=== PATIENT | male | born 1950 | race Caucasian/White ===

== ENCOUNTER 2016-08-21 10:35 | Observation (INO) | payer SELFPAY ==
[2016-08-21 12:45] LABS: % IMMATURE GRANULYOCYTES 0.3 % (0.0-1.1); ABSOLUTE IMMATURE GRANULOCYTES 0.01 10^3/uL (0.00-0.10); ADD DIFF? NO; ADD MORPH? NO; ADD SCAN? NO; ATYPICAL LYMPHOCYTE FLAG 50 (0-99); FRAGMENT RBC FLAG 0 (0-99); HEMATOCRIT 41.1 % (40.0-51.0); HEMOGLOBIN 13.9 g/dL (13.7-17.5); LEFT SHIFT FLG 0 (0-99); LIPEMIA HEMOLYSIS FLAG 90 (0-99); MEAN CELL HEMOGLOBIN 30.3 pg (27.9-34.1); MEAN CELL HEMOGLOBIN CONCENTR. 33.8 g/dL (32.4-36.7); MEAN CELL VOLUME 89.5 fL (81.5-99.8); MEAN PLATELET VOLUME 9.9 fL (8.7-11.7); PLATELET CLUMPS FLAG 10 (0-99); PLATELET COUNT 163 10^3/uL (150-400); RED BLOOD CELL COUNT 4.59 10^6/uL (4.40-6.38); RED CELL DISTRIBUTION WIDTH 13.2 % (11.5-15.2)
[2016-08-21 12:58] LABS: ANION GAP 10 mEq/L (8-16); CALCIUM 8.9 mg/dL (8.5-10.4); CARBON DIOXIDE 24 mEq/l (22-31); CHLORIDE 101 mEq/L (97-110); CREATININE 1.1 mg/dL (0.7-1.3); GLOMERULAR FILTRATION RATE > 60; GLUCOSE 89 mg/dL (70-100); POTASSIUM 4.1 mEq/L (3.5-5.2); SODIUM 135 mEq/L (134-144)
[2016-08-21] MEDS ORDERED: IPRATROPIUM/ALBUTEROL 3 ML DEYVIAL ONE (13:02)
[2016-08-21] MEDS ORDERED: IPRATROPIUM/ALBUTEROL 3 ML DEYVIAL IH ONE (13:12)
--- NOTE | 2016-08-21 13:26 | EDPHY ---
H & P Smoking Status: Current every day smoker Time Seen by Provider: 08/21/16 11:14 HPI/ROS: CHIEF COMPLAINT: Cough, shortness of breath HISTORY OF PRESENT ILLNESS: 65-year-old male presents to the emergency department with ongoing cough and feeling short of breath over last for 5 days. He has felt feverish and chilled. He is homeless. He does not receive flu shots. He is a chronic smoker. He has had rhinorrhea and nasal congestion. Denies pain in his chest or his abdomen. No nausea or vomiting. No diarrhea. REVIEW OF SYSTEMS: Constitutional: No fever, no chills. Eyes: No double or blurry vision. ENT: No sore throat. Respiratory: Cough, shortness of breath as above Cardiac: No chest pain. Gastrointestinal: No abdominal pain, vomiting or diarrhea. Genitourinary: No dysuria. Musculoskeletal: No neck or back pain. Skin: No rashes. Neurological: No headache. (Verónica Benitez) Past Medical/Surgical History: Chronic smoker (Verónica Benitez) Social History: Homeless (Verónica Benitez) Physical Exam: General Appearance: Alert, no distress. Temperature 37.5, 95% on 2 L of nasal cannula oxygen. 156/87 Eyes: Pupils equal and round. Extraocular motions are all intact. ENT: Mouth: Mucous membranes moist. Respiratory: Rhonchi in the bases. No rales. No respiratory distress. Cardiovascular: Regular rate and rhythm. Gastrointestinal: Abdomen is soft and nontender, no masses, no rebound or guarding, bowel sounds normal. Neurological: Alert and oriented x 3, cranial nerves II through XII grossly intact Skin: Warm and dry, no rashes. Musculoskeletal: Nontender to palpate along the cervical, thoracic or lumbar spine. Neck is supple. Extremities: Full range of motion and no peripheral edema. Psychiatric: Patient is oriented X 3, there is no agitation. (Verónica Benitez) Constitutional: Initial Vital Signs Temperature (C) 37.5 C 08/21/16 10:45 Heart Rate 95 08/21/16 10:45 Respiratory Rate 18 08/21/16 10:45 Blood Pressure 156/87 H 08/21/16 10:45 O2 Sat (%) 97 08/21/16 10:45 O2 Delivery Mode Nasal Cannula O2 (L/minute) 2 Allergies/Adverse Reactions: No Known Allergies Allergy (Unverified 08/21/16 10:45) Home Medications: Medication Instructions Recorded NK [No Known Home Meds] 08/21/16 Medical Decision Making - Diagnostics Imaging: Imaging Impressions Chest X-Ray 08/21/16 10:49 Impression: 1. Bronchitis. 2. No definite pneumonia. ED Course/Re-evaluation: 65-year-old male presents to the emergency department with cough and shortness of breath. He is homeless. The nasal cannula oxygen was turned down and the patient went down to 80% on room air while he was sleeping. Patient was placed on 2 L of nasal cannula oxygen again. He was given a DuoNeb. Chest x-ray reveals no obvious pneumonia. Due to the patient's hypoxia specially with sleeping, the patient will be admitted to the hospital to the [facility] to Dr. Dre Toledo. Influenza B was positive. Tamiflu is not initiated since this patient has been ill for nearly 1 week. Patient was given DuoNeb in the emergency department. He did receive albuterol nebulizer in the ambulance with relief. (Verónica Benitez) Differential Diagnosis: Shortness of breath including but not limited to pulmonary infectious process, COPD, asthma, pulmonary embolus and congestive heart failure. (Verónica Benitez) - Data Points Laboratory Results: Laboratory Results 08/21/16 12:37 08/21/16 12:37 08/21/16 08/21/16 12:37 12:37 WBC 3.86 10^3/uL 10^3/uL (3.80-9.50) RBC 4.59 10^6/uL 10^6/uL (4.40-6.38) Hgb 13.9 g/dL g/dL (13.7-17.5) Hct 41.1 % % (40.0-51.0) MCV 89.5 fL fL (81.5-99.8) MCH 30.3 pg pg (27.9-34.1) MCHC 33.8 g/dL g/dL (32.4-36.7) RDW 13.2 % % (11.5-15.2) Plt Count 163 10^3/uL 10^3/uL (150-400) MPV 9.9 fL fL (8.7-11.7) Neut % (Auto) 66.5 % % (39.3-74.2) Lymph % (Auto) 15.8 % % (15.0-45.0) [place] % (Auto) 16.6 % H % (4.5-13.0) Eos % (Auto) 0.5 % L % (0.6-7.6) Baso % (Auto) 0.3 % % (0.3-1.7) Nucleat RBC Rel Count 0.0 % % (0.0-0.2) Absolute Neuts (auto) 2.57 10^3/uL 10^3/uL (1.70-6.50) Absolute Lymphs (auto) 0.61 10^3/uL L 10^3/uL (1.00-3.00) Absolute Monos (auto) 0.64 10^3/uL 10^3/uL (0.30-0.80) Absolute Eos (auto) 0.02 10^3/uL L 10^3/uL (0.03-0.40) Absolute Basos (auto) 0.01 10^3/uL L 10^3/uL (0.02-0.10) Absolute Nucleated RBC 0.00 10^3/uL 10^3/uL (0-0.01) Immature Gran % 0.3 % % (0.0-1.1) Immature Gran # 0.01 10^3/uL 10^3/uL (0.00-0.10) Sodium 135 mEq/L mEq/L (134-144) Potassium 4.1 mEq/L mEq/L (3.5-5.2) Chloride 101 mEq/L mEq/L (97-110) Carbon Dioxide 24 mEq/l mEq/l (22-31) Anion Gap 10 mEq/L mEq/L (8-16) BUN 16 mg/dL mg/dL (7-23) Creatinine 1.1 mg/dL mg/dL (0.7-1.3) Estimated GFR > 60 Glucose 89 mg/dL mg/dL (70-100) Calcium 8.9 mg/dL mg/dL (8.5-10.4) Medications Given: Discontinued Medications Albuterol/Ipratropium (Duoneb) 3 ml IH EDNOW ONE Stop: 08/21/16 13:13 Last Admin: 08/21/16 13:13 Dose: 3 ml Departure - Departure Disposition: [facility] Acute Clinical Impression: Hypoxia Acute bronchitis Qualifiers: Bronchitis organism: unspecified organism Qualified Code(s): J20.9 - Acute bronchitis, unspecified Condition: Good
--- NOTE | 2016-08-21 14:47 | PDGENHP ---
History and Physical - Chief Complaint Cough, wheezing and shortness of breath - History of Present Illness 65 y/o homeless white male smoker brought by ambulance to ED presenting with wheezing, shortness of breath, and cough of 4-5 days duration. He reports subjective fevers, body aches, and headache. He describes his cough as dry and nonproductive. The symptoms came on on Friday. He is unsure ally fever was. Tells me he feels dizzy with exertion. he is very tired and has not been sleeping. History Information - Allergies/Home Medication List Allergies/Adverse Reactions: No Known Allergies Allergy (Unverified 08/21/16 10:45) Home Medications: NK [No Known Home Meds] 08/21/16 [Last Taken Unknown] I have personally reviewed and updated: family history, medical history, social history, surgical history - Past Medical History Additional medical history: tobacco use - Surgical History Reports: no pertinent surgical hx - Social History Smoking Status: Current every day smoker Alcohol Use: None Drug Use: None Review of Systems ROS: 10pt was reviewed & negative except for what was stated in HPI & below Physical Exam Temp Pulse Resp BP Pulse Ox 37.9 C 98 18 166/94 H 93 08/21/16 14:13 08/21/16 14:13 08/21/16 14:13 08/21/16 14:13 08/21/16 14:13 O2 (L/minute) 1 Constitutional: no apparent distress, appears nourished, not in pain Eyes: PERRL, anicteric sclera, EOMI Ears, Nose, Mouth, Throat: moist mucous membranes, hearing normal, ears appear normal, no oral mucosal ulcers Cardiovascular: regular rate and rhythym, no murmur, rub, or gallop, No edema Respiratory: no respiratory distress, no rales or rhonchi, clear to auscultation Gastrointestinal: normoactive bowel sounds, soft, non-tender abdomen, no palpable masses Genitourinary: no bladder fullness, no bladder tenderness Skin: warm, normal color, no rashes or abrasions, no fluctuance, no induration, No mottled Musculoskeletal: full muscle strength, no muscle tenderness, normal joint ROM, no joint effusions Neurologic: AAOx3, No facial droop Psychiatric: interacting appropriately, not anxious, not encephalopathic, thought process linear Lab Data & Imaging Review 08/21/16 12:37 08/21/16 12:37 WBC 3.86 10^3/uL (3.80-9.50) 08/21/16 12:37 RBC 4.59 10^6/uL (4.40-6.38) 08/21/16 12:37 Hgb 13.9 g/dL (13.7-17.5) 08/21/16 12:37 Hct 41.1 % (40.0-51.0) 08/21/16 12:37 MCV 89.5 fL (81.5-99.8) 08/21/16 12:37 MCH 30.3 pg (27.9-34.1) 08/21/16 12:37 MCHC 33.8 g/dL (32.4-36.7) 08/21/16 12:37 RDW 13.2 % (11.5-15.2) 08/21/16 12:37 Plt Count 163 10^3/uL (150-400) 08/21/16 12:37 MPV 9.9 fL (8.7-11.7) 08/21/16 12:37 Neut % (Auto) 66.5 % (39.3-74.2) 08/21/16 12:37 Lymph % (Auto) 15.8 % (15.0-45.0) 08/21/16 12:37 [place] % (Auto) 16.6 % (4.5-13.0) H 08/21/16 12:37 Eos % (Auto) 0.5 % (0.6-7.6) L 08/21/16 12:37 Baso % (Auto) 0.3 % (0.3-1.7) 08/21/16 12:37 Nucleat RBC Rel Count 0.0 % (0.0-0.2) 08/21/16 12:37 Absolute Neuts (auto) 2.57 10^3/uL (1.70-6.50) 08/21/16 12:37 Absolute Lymphs (auto) 0.61 10^3/uL (1.00-3.00) L 08/21/16 12:37 Absolute Monos (auto) 0.64 10^3/uL (0.30-0.80) 08/21/16 12:37 Absolute Eos (auto) 0.02 10^3/uL (0.03-0.40) L 08/21/16 12:37 Absolute Basos (auto) 0.01 10^3/uL (0.02-0.10) L 08/21/16 12:37 Absolute Nucleated RBC 0.00 10^3/uL (0-0.01) 08/21/16 12:37 Immature Gran % 0.3 % (0.0-1.1) 08/21/16 12:37 Immature Gran # 0.01 10^3/uL (0.00-0.10) 08/21/16 12:37 Sodium 135 mEq/L (134-144) 08/21/16 12:37 Potassium 4.1 mEq/L (3.5-5.2) 08/21/16 12:37 Chloride 101 mEq/L (97-110) 08/21/16 12:37 Carbon Dioxide 24 mEq/l (22-31) 08/21/16 12:37 Anion Gap 10 mEq/L (8-16) 08/21/16 12:37 BUN 16 mg/dL (7-23) 08/21/16 12:37 Creatinine 1.1 mg/dL (0.7-1.3) 08/21/16 12:37 Estimated GFR > 60 08/21/16 12:37 Glucose 89 mg/dL (70-100) 08/21/16 12:37 Calcium 8.9 mg/dL (8.5-10.4) 08/21/16 12:37 Influenza Typ A,B (DFA) POSITIVE FOR FLU B (NEGATIVE) H 08/21/16 13:20 Visualized and Interpreted Chest x-ray results: Yes Chest X-Ray results: no infiltrate, normal Assessment & Plan Assessment: This is a 65-year-old homeless male smoker presenting with: # shortness of breath, myalgias, cough due to influenza B # acute hypoxemic respiratory failure due to above # tobacco abuse # elevated blood pressure without history of hypertension Plan: - We will start Tamiflu despite being more than 48 hours after onset - continue supplemental oxygen - I encouraged tobacco cessation. The patient is not interested in nicotine replacement - will consider starting antihypertensive medications to obtain goal blood pressure of less than 150/90 based on the JNC 8 guidelines disposition: The patient will be placed under observation
[2016-08-21] MEDS ORDERED: ACETAMINOPHEN 325 MG TAB PO PRN (15:15)
[2016-08-21] MEDS ORDERED: ONDANSETRON 4 MG/2 ML VIAL IVP PRN (15:15)
[2016-08-21] MEDS ORDERED: ONDANSETRON DISINTEGRATING 4 MG TAB PO PRN (15:15)
[2016-08-21] MEDS ORDERED: IPRATROPIUM/ALBUTEROL 3 ML DEYVIAL IH PRN (15:20)
[2016-08-21] MEDS: OSELTAMIVIR PHOSPHATE 75 MG CAP PO SCH (18:45)
[2016-08-22] MEDS ORDERED: OSELTAMIVIR PHOSPHATE 75 MG CAP PO SCH
[2016-08-22 02:48] VITALS: RESP 20
[2016-08-22] MEDS: OSELTAMIVIR PHOSPHATE 75 MG CAP PO SCH (08:24)
[2016-08-22 08:28] VITALS: BP 161/86; PULSE 82; TEMP 98.1; O2SAT 95
--- NOTE | 2016-08-22 14:36 | GDS ---
[f rep st] DISCHARGE SUMMARY DISCHARGE DIAGNOSIS: Influenza B. OBSERVATION COURSE: Influenza B: The patient presented to the hospital with malaise, fatigue, shor tness of breath, and myalgias. A flu PCR was done and was positive for influenza B. He was started on Tamiflu. A chest x-ray was done that was negative for pneumonia. On observation, the patient h as continued to have malaise and body aches. He has been afebrile with adequate oxygen saturations on room air. On the day of discharge, he was fairly reluctant to leave the hospital since he is currently without usp. Case Management was consulted, who found him placement at a respite bed. He was also enc ouraged to establish care with a primary care provider and should be seen in followup in the next we ek. He was instructed to seek medical attention if his condition worsens. PHYSICAL EXAMINATION: VITAL SIGNS: On the day of discharge, blood pressure 161/86, pulse of 82, re spiratory rate 20, O2 sat 95% on room air, temperature afebrile. LUNGS: Clear. No wheezes, rales, or rhonchi. ABDOMEN: Soft. EXTREMITIES: No edema. DISCHARGE MEDICATIONS: Please refer to discharge medication reconciliation in [facility] for full det ails. Below is a preliminary list. New medications on hospital discharge: Tamiflu 75 mg p.o. b.i.d. to 10 doses, Tylenol as needed for pain and body aches. DISCHARGE INSTRUCTIONS: Once again, the patient was released from observation and was given a respi te bed. He should follow up with a primary care provider as directed in the next week for a routine hospital followup. Once again, he was discharged to seek medical attention if his condition worsen s. /[id number]/MODL
== END 2016-08-22 13:08 | disposition home or self-care (01) ==
LOC: F1N 13:47
PROVIDERS: ADMIT Family Medicine; ATTEND Family Medicine
DX: J11.1 Influenza due to unidentified influenza virus with other respiratory manifestations (principal); J20.9 Acute bronchitis, unspecified; F17.210 Nicotine dependence, cigarettes, uncomplicated; Z59.0 Homelessness
CPT/HCPCS: G0378